=== PATIENT | male | born 1950 | race African-American/Black ===

== ENCOUNTER 2017-12-18 13:45 | Outpatient (CLI) | payer MEDICARE ==
[~2017-12-18 13:45] MED LIST: ASPIRIN EC81 MG PO; COREG25 MG PO; DIOVAN160 MG PO; GLUCOPHAGE850 MG PO; KENALOG IN ORABA1 EA APPLIC; LANOXIN250 MCG PO; LASIX40 MG PO; NEURONTIN100 MG PO; NOVOLOG MIX SUBQ; PRADAXA150 MG PO; SPIRONOLACTONE25 MG PO; VISTARIL10 MG PO
--- NOTE | 2017-12-18 16:42 | GI Initial Consult Note ---
History of Present Illness General Date patient seen: Dec 18, 2017 Time patient seen: 16:35 Referring physician: SANDY THOMPSON Reason for Consultation: COLONOSCOPY Present Illness HPI 67 year old male patient referred by Dr. Thompson for initial colonoscopy screening. The patient presents today with no complaints of any GI symptoms. Denies any unintentional weight loss or changes in dietary habits. Patient has had 30 lbs weight loss in the past 2 years with exercise. No signs of abuse or neglect. Patient is not fall risk. No history of endoscopy / colonoscopy. Home Meds Reported Medications Insulin Aspart (NovoLOG MIX 70/30) 5 Units Vial, 30 UNITS SUBQ QPM 07/02/12 Triamcinolone (Triamcinolone Acetonide) 1 Ea Tube, 1 EA APPLIC BID 07/02/12 Hydroxyzine HCl (Hydroxyzine HCl) 10 Mg Tab, 10 MG PO BID, #20 TAB Take 1 tablet by mouth every 6 hours. 07/02/12 Aspirin Ec* (ASPIRIN EC*) 81 Mg Tablet.dr, 81 MG PO DAILY 07/02/12 Valsartan (Diovan) 160 Mg Tab, 160 MG PO BID, TAB Take one tablet by mouth daily 07/02/12 Carvedilol (Coreg) 25 Mg Tab, 25 MG PO Q12H, #20 TAB Take 1 tablet by mouth every 12 hours. 07/02/12 Metformin Hcl* (GLUCOPHAGE*) 850 Mg Tablet, 850 MG PO BID, #10 TAB Take 1 tablet by mouth every day. 07/02/12 Gabapentin* (NEURONTIN*) 100 Mg Capsule, 100 MG PO BID, #15 CAP Take 1 capsule by mouth three times a day. 07/02/12 Furosemide* (LASIX*) 40 Mg Tablet, 40 MG PO DAILY, #10 TAB Take 1 tablet by mouth every day. 07/02/12 Spironolactone* (ALDACTONE*) 25 Mg Tablet, 25 MG PO DAILY 07/02/12 Digoxin* (LANOXIN*) 250 Mcg Tablet, 250 MCG PO DAILY, #10 TAB Take 1 tablet by mouth every day. 07/02/12 Dabigatran Etexilate Mesylate* (PRADAXA*) 150 Mg Capsule, 150 MG PO DAILY, #20 CAP Take 1 capsule by mouth every 12 hours. 07/02/12 Med list reviewed/reconciled: Yes Allergies: Coded Allergies: No Known Allergies (Verified Allergy, Unknown, 07/16/07) Patient History History Provided By: Patient, Medical Record PMH Narrative Heart disease HTN AICD DM Social History: Denies: smoking, alcohol use, drug use, other Review of Systems All Other Systems: negative except mentioned in HPI Physical Exam T 98.5 BP 105/62 HR 85 100 RA Sp02 EP Interpretation: reviewed, normal General Appearance: well appearing, no apparent distress, alert Head: normocephalic EENT: PERRL/EOMI, normal ENT inspection Neck: supple Respiratory: normal breath sounds, no respiratory distress Cardiovascular: normal rate Gastrointestinal: normal inspection, non tender, soft, normal bowel sounds, non -distended Rectal: deferred Genitourinary: deferred Musculoskeletal: normal inspection, back normal Neurologic: normal inspection, alert, oriented x3, responsive Psychiatric: normal inspection, judgement/insight normal, memory normal Skin: normal inspection, normal color, no rash, warm/dry, palpation normal, well hydrated Lymphatic: normal inspection, no adenopathy GI: Plan Problems: (1) HTN (hypertension) (2) AICD (automatic cardioverter/defibrillator) present (3) Diabetes mellitus Plan EGD/colonoscopy scheduled 12/25/17. - CLD & (Nulytely/Suprep/Movi-Prep) prep instructions given and acknowledged by patient. - NPO @ [place] day prior procedure explained. - patient is on Pradax, needs to be stopped 3 days prior procedure. Seen with Dr. Mondragon. Thank you for this patient referral. Radha Hoskins N.P. Dec 18, 2017 16:42
== END 2017-12-18 14:20 | disposition home or self-care (01) ==
LOC: PAN 13:45
DX: E11.9 Type 2 diabetes mellitus without complications (principal); Z95.810 Presence of automatic (implantable) cardiac defibrillator; I11.9 Hypertensive heart disease without heart failure; Z79.82 Long term (current) use of aspirin
CPT/HCPCS: 99202

== ENCOUNTER 2017-12-22 09:20 | Day surgery (SDC) | payer MEDICARE ==
[2017-12-22] VITALS (9 sets, daily range): BP systolic 108–156; BP diastolic 65–86
[~2017-12-22] VITALS: Ht 182.9 cm; Wt 84.8 kg
[2017-12-22] MEDS ORDERED: D5NS 1000ml IV ONE (10:30)
[2017-12-22] MEDS ORDERED: Midazolam 2mg/2ml Inj ONE (10:30)
[2017-12-22] MEDS ORDERED: Propofol 200mg/20ml IV ONE (10:30)
[2017-12-22] MEDS ORDERED: fentaNYL 100 mcg/2 mL IV ONE (10:30)
[2017-12-22] MEDS ORDERED: D5 1/2NS 1,000 ML IV SCH (10:30)
[2017-12-22] MEDS ORDERED: TRESIBA FL200 UNIT/1 SQ (10:38)
--- NOTE | 2017-12-22 10:39 | Pre-Procedure Note/Attestation ---
Pre-Procedure Note/Attestation Complete Prior to Procedure Planned Procedure: not applicable Procedure Narrative: esophagogastroduodenoscopy and colonoscopy Indications for Procedure Pre-Operative Diagnosis: abd pain, anemia Attestation I attest that I discussed the nature of the procedure; its benefits; risks and complications; and alternatives (and the risks and benefits of such alternatives ), prior to the procedure, with the patient (or the patient's legal footwear sales representative). I attest that, if there was a reasonable possibility of needing a blood transfusion, the patient (or the patient's legal footwear sales representative) was given the [facility] standardized written summary, pursuant to the Francisco Iza Blood Safety Act ([place] Health and Safety Code # 1645, as amended). I attest that I re-evaluated the patient just prior to the surgery and that there has been no change in the patient's H&P, except as documented below: TONYA BROWER Dec 22, 2017 10:39
--- NOTE | 2017-12-22 10:39 | Short Stay Surgery H&P ---
History of Present Illness History of Present Illness Chief Complaint see recent consult note HPI Scott Meehan is a 67 year old male who was admitted on for Abdominal Pain Patient History Allergies: Coded Allergies: No Known Allergies (Verified Allergy, Unknown, 07/16/07) Medication History Scheduled Aspirin Ec* (Aspirin Ec*), 81 MG PO DAILY, (Reported) Carvedilol (Coreg), 25 MG PO Q12H, (Reported) Dabigatran Etexilate Mesylate* (Pradaxa*), 150 MG PO DAILY, (Reported) Digoxin* (Lanoxin*), 250 MCG PO DAILY, (Reported) Furosemide* (Lasix*), 40 MG PO DAILY, (Reported) Gabapentin* (Neurontin*), 100 MG PO BID, (Reported) Hydroxyzine HCl (Hydroxyzine HCl), 10 MG PO BID, (Reported) Insulin Degludec (Tresiba Flextouch U-200), 50 UNIT SQ BO, (Reported) Spironolactone* (Aldactone*), 25 MG PO DAILY, (Reported) Triamcinolone (Triamcinolone Acetonide), 1 EA APPLIC BID, (Reported) Valsartan (Diovan), 160 MG PO BID, (Reported) Discontinued Medications Insulin Aspart (NovoLOG MIX 70/30), 30 UNITS SUBQ QPM, (Reported) Discontinued Reason: Pt stopped taking med Metformin Hcl* (Glucophage*), 850 MG PO BID, (Reported) Discontinued Reason: Pt stopped taking med Physical Exam Vital Signs Last Vital Signs Date Time Temp Pulse Resp B/P (MAP) Pulse Ox O2 Delivery O2 Flow Rate FiO2 12/22/17 10:33 97.0 81 20 121/86 100 Room Air 97.0 Plan Attestation Are the patient's medical conditions optimized for surgery? TONYA BROWER Dec 22, 2017 10:39
--- NOTE | 2017-12-22 10:56 | 48 Hour Post Anesthesia Eval ---
Post Anesthesia Evaluation Procedure: EGD COLO Date of Evaluation: Dec 24, 2017 Time of Evaluation: 10:55 Blood Pressure Systolic: 141 0: 67 Pulse Rate: 78 Respiratory Rate: 16 Temperature (Fahrenheit): 97 O2 Sat by Pulse Oximetry: 99 Airway: patent Nausea: No Vomiting: No Pain Intensity: 0 Hydration Status: adequate Mental Status/LOC: patient returned to baseline Post-Anesthesia Complications: none Follow-up care needed: patient intructions given Aneesh Connell M.D. Dec 22, 2017 10:56
[2017-12-22 10:57] LABS: BASOPHILS % (AUTO) 1.4 % (0.0-2.0); EOSINOPHILS % (AUTO) 5.7 % (0.0-3.0); HEMATOCRIT 47.3 % (42.0-52.0); LYMPHOCYTES % (AUTO) 25.1 % (20.0-45.0); MEAN CORPUSCULAR VOLUME 95 FL (80-99); MONOCYTES % (AUTO) 5.4 % (1.0-10.0); NEUTROPHILS % (AUTO) 62.4 % (45.0-75.0); PLATELET COUNT 253 K/UL (150-450); RED BLOOD COUNT 4.98 M/UL (4.70-6.10); RED CELL DISTRIBUTION WIDTH 11.1 % (11.6-14.8); WHITE BLOOD COUNT 8.7 K/UL (4.8-10.8)
--- NOTE | 2017-12-22 11:16 | Endoscopy Procedure Note ---
Endoscopy Procedure Note General Indication for Procedure: screening colon, GERD Procedures Performed: EGD, colonoscopy Operative Findings/Diagnosis: gastrtis, one colon polyp Specimen: yes Pt Tolerated Procedure Well: Yes Estimated Blood Loss: none Anesthesia Anesthesiologist: esme Anesthesia: MAC Inserted Devices Implant(s) used?: No Quality Quality of Bowel Preparation: Fair Did scope reach the cecum?: Yes Was there any complications?: No GI Core Measures 50 yrs or older w/o bx or poly: No 10yrs. F/U not recommended: Yes If not recommended, why?: Above average risk 10 yrs. F/U needed: Yes 18 years or older w/prev. colo: No TONYA BROWER Dec 22, 2017 11:16
[2017-12-22 11:19] LABS: ALANINE AMINOTRANSFERASE 31 U/L (12-78); ALBUMIN 3.8 G/DL (3.4-5.0); ALBUMIN/GLOBULIN RATIO 0.9 (1.0-2.7); ALKALINE PHOSPHATASE 71 U/L (46-116); AMYLASE 68 U/L (25-115); ANION GAP 9 mmol/L (5-15); ASPARTATE AMINO TRANSFERASE 31 U/L (15-37); BILIRUBIN,TOTAL 0.9 MG/DL (0.2-1.0); BLOOD UREA NITROGEN 7 mg/dL (7-18); CALCIUM 9.1 MG/DL (8.5-10.1); CARBON DIOXIDE 26 MMOL/L (21-32); CHLORIDE 106 MMOL/L (98-107); CREATININE 1.1 MG/DL (0.55-1.30); POTASSIUM 4.3 MMOL/L (3.5-5.1); SODIUM 141 MMOL/L (136-145)
--- NOTE | 2017-12-22 16:45 | Procedure Note ---
DATE OF PROCEDURE: 12/22/2017 SURGEON: Antonio Mondragon M.D. ANESTHESIOLOGIST: Dr. Connell. PROCEDURE: Upper endoscopy with biopsy and colonoscopy with biopsy. ANESTHESIA: Per Dr. Connell. INSTRUMENT: Olympus adult flexible upper endoscope and colonoscope. INDICATION: Weight loss, screening colon evaluation. The procedure, risks, benefits, and possible consequences, including hemorrhage, aspiration, perforation and infection, and alternative treatments, were explained to the patient/legal guardian by Dr. Antonio Mondragon and the patient/legal guardian understood and accepted these risks. DESCRIPTION OF PROCEDURE: After informed consent was obtained and the patient was adequately sedated, Olympus upper endoscope was advanced from the mouth to the second portion of the duodenum and retroflexion was performed in the stomach. The patient had some white plaques in the esophagus suspicious for Jeannette esophagitis, status post brush biopsy. The patient had some minimum distal esophagitis. In the stomach, there was diffuse gastritis. Random biopsy from antrum was obtained to rule out for H. pylori infection. At this time, the upper endoscope was retrieved. The patient was turned over for colonoscopy. First, rectal exam was performed which showed positive for internal hemorrhoids. Then, the scope was advanced from the rectum into the cecum documented by appendiceal orifice, ileocecal valve, and right upper quadrant palpation. Quality of prep was fair. About 16% of the colonic mucosa was not examined given this prep. The patient had one diminutive polyp in the sigmoid colon which was removed with cold biopsy forceps technique. The patient had evidence of diverticulosis both on the left and right, but more prominent on the left. Retroflexion of the rectum showed evidence of internal hemorrhoids. SUMMARY OF FINDINGS: 1. Gastritis. 2. Minimum esophagitis. 3. Questionable Jeannette esophagitis, status post brush biopsy. 4. One colonic polyp removed, see above for details. 5. Diverticulosis. 6. Internal hemorrhoids. RECOMMENDATIONS: 1. Follow biopsies and treat accordingly. 2. We recommend repeat colonoscopy in 5 years. Antonio Mondragon M.D. DR: Jackie JOB#: [id number] CC:
--- NOTE | 2017-12-24 17:46 | Cardiology Report ---
APPROVED REPORT EKG Measurement Heart [id number] [place] [id number] Normal sinus rhythm Nonspecific T wave abnormality Abnormal ECG
== END 2017-12-22 12:40 | disposition home or self-care (01) ==
LOC: GAS 09:20
DX: Z12.11 Encounter for screening for malignant neoplasm of colon (principal); R63.4 Abnormal weight loss; K20.9 Esophagitis, unspecified; K29.70 Gastritis, unspecified, without bleeding; K63.5 Polyp of colon; K57.90 Diverticulosis of intestine, part unspecified, without perforation or abscess without bleeding; K64.8 Other hemorrhoids; Z79.82 Long term (current) use of aspirin
CPT/HCPCS: 36415; 80053; 82150; 82378; 82962; 83690; 85025; 93005; 94003; 94150; J2250

== ENCOUNTER 2018-01-02 09:18 | Outpatient (CLI) | payer MEDICARE ==
--- NOTE | 2017-12-29 20:38 | 48 Hour Post Anesthesia Eval ---
Post Anesthesia Evaluation Procedure: EGD Date of Evaluation: Dec 24, 2017 Time of Evaluation: 20:37 Blood Pressure Systolic: 130 0: 78 Pulse Rate: 82 Respiratory Rate: 16 Temperature (Fahrenheit): 98 O2 Sat by Pulse Oximetry: 99 Airway: patent Nausea: No Vomiting: No Pain Intensity: 0 Hydration Status: adequate Mental Status/LOC: patient returned to baseline Post-Anesthesia Complications: nonr Follow-up care needed: ready to discharge Aneesh Connell M.D. December 29, 2017 20:38
--- NOTE | 2017-12-29 20:40 | Immediate Post-Op Evaluation ---
Immediate Post-Op Evalulation Immediate Post-Op Evalulation Procedure: EGD Date of Evaluation: Dec 23, 2007 Time of Evaluation: 20:39 IV Fluids: 100 Blood Products: 0 Estimated Blood Loss: 0 Urinary Output: 0 Blood Pressure Systolic: 136 Blood Pressure Diastolic: 74 Pulse Rate: 90 Respiratory Rate: 19 O2 Sat by Pulse Oximetry: 99 Temperature (Fahrenheit): 98 Pain Score (1-10): 0 Nausea: No Vomiting: No Complications none Patient Status: awake, reacts Hydration Status: adequate Given Within 1 Hr of Incision: Aneesh Ruvalcaba M.D. December 29, 2017 20:40
[~2018-01-02 09:18] MED LIST changes: +TRESIBA FL200 UNIT/1 SQ
--- NOTE | 2018-01-02 09:51 | GI Progress Note ---
Assessment/Plan Problems: (1) Hemorrhoids ICD Codes: K64.9 - Unspecified hemorrhoids SNOMED: 00885868 (2) Jeannette esophagitis ICD Codes: B37.81 - Candidal esophagitis SNOMED: 82895289 (3) Gastritis ICD Codes: K29.70 - Gastritis, unspecified, without bleeding SNOMED: 4851916 (4) Constipation ICD Codes: K59.00 - Constipation, unspecified SNOMED: 60298495 Status: stable Status Narrative Seen with Dr. Mondragon. Assessment/Plan SUMMARY OF FINDINGS: 1. Gastritis. 2. Minimum esophagitis. 3. Questionable Jeannette esophagitis, status post brush biopsy. 4. One colonic polyp removed, see above for details. 5. Diverticulosis. 6. Internal hemorrhoids. RECOMMENDATIONS: Follow biopsies and treat accordingly. >> positive for jeannette >> Rx Diflucan given Amitiza for constipation RTC x 3 months We recommend repeat colonoscopy in 5 years. Subjective Gastrointestinal/Abdominal: Reports: no symptoms Objective T 98.1 BP 156/84 P 77 98 RA General Appearance: WD/WN, no apparent distress, alert Cardiovascular: normal rate Respiratory/Chest: normal breath sounds, no respiratory distress Abdominal Exam: normal bowel sounds, non tender, soft Extremities: normal range of motion, non-tender Radha Hoskins N.P. January 02, 2018 09:50
[2018-01-02 10:18] VITALS: BP 156/84
== END 2018-01-02 09:50 | disposition home or self-care (01) ==
LOC: PAN 09:18
DX: K64.9 Unspecified hemorrhoids (principal); B37.81 Candidal esophagitis; K59.00 Constipation, unspecified; K29.70 Gastritis, unspecified, without bleeding; K63.5 Polyp of colon; K57.90 Diverticulosis of intestine, part unspecified, without perforation or abscess without bleeding; K64.8 Other hemorrhoids
CPT/HCPCS: 99212